=== PATIENT | female | born 1980 | race Two or more races ===

== ENCOUNTER 2016-04-07 16:05 | Emergency (ER) | payer OTHER ==
[~2016-04-07] VITALS: Ht 157.5 cm; Wt 59.0 kg
[2016-04-07 18:12] VITALS: BP 108/57
== END 2016-04-07 18:12 | disposition home or self-care (01) ==
LOC: ER 16:06
DX: O9A.211 Injury, poisoning and certain other consequences of external causes complicating pregnancy, first trimester (principal); S39.92XA Unspecified injury of lower back, initial encounter; R10.30 Lower abdominal pain, unspecified; Z88.6 Allergy status to analgesic agent; Z3A.13 13 weeks gestation of pregnancy; V89.2XXA Person injured in unspecified motor-vehicle accident, traffic, initial encounter; Y93.89 Activity, other specified; Y92.89 Other specified places as the place of occurrence of the external cause; Y99.9 Unspecified external cause status
CPT/HCPCS: 76805; 99284; A4606; Z7610